=== PATIENT | male | born 1980 | race African-American/Black ===

== ENCOUNTER 2018-02-02 21:25 | Emergency (ER) | payer SELFPAY ==
[2018-02-02 21:45] VITALS: BP 159/92
[2018-02-02] MEDS ORDERED: LIDOCAINE 1% INJ-PF (10 MG/ML) 30 ML SDV INJ ONE (22:20)
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
[2018-02-02] MEDS ORDERED: AMOXICILLIN TR/POT CLAVULANATE 500-125 MG TAB PO ONE (23:12)
[2018-02-02] MEDS ORDERED: AMOXICILLIN TRIHYDRATE 500 MG CAPSULE PO ONE (23:12)
--- NOTE | 2018-02-02 23:22 | RADIOLOGY REPORT (SQ) ---
EXAM DESCRIPTION: XR HAND 3 OR MORE VIEWS COMPLETED DATE/TME: 02/02/2018 22:19 CLINICAL HISTORY: 38 years Male, animal bite, swelling COMPARISON: None. Findings: Swelling, no radiopaque foreign body. Bones, joints, and soft tissues of the XR LEFT HAND 3 VIEWS appear otherwise intact. IMPRESSION: Swelling.
== END 2018-02-02 23:39 | disposition home or self-care (01) ==
LOC: ER 21:25
PROC: 0HQGXZZ Repair Left Hand Skin, External Approach (ICD-10-PCS; principal; 2018-02-02)
DX: S61.452A Open bite of left hand, initial encounter (principal); W54.0XXA Bitten by dog, initial encounter
CPT/HCPCS: 99283; 73130; 12002; J3490

== ENCOUNTER 2019-06-30 23:34 | Emergency (ER) | payer SELFPAY ==
[2019-07-01] MEDS: ALBUTEROL SULFATE 0.083% NEB 2.5 MG/3 ML AMPUL NEB SCH ×2 (00:16)
--- NOTE | 2019-07-01 01:15 | EKG REPORT ---
SEVERITY:- ABNORMAL ECG - SINUS RHYTHM NONSPECIFIC INTRAVENTRICULAR CONDUCTION DELAY : Confirmed by: Leanne Lynne MD 01-Jul-2019 01:14:26
--- NOTE | 2019-07-01 01:24 | ER Document Report ---
ED Respiratory Problem - General Chief Complaint: Breathing Difficulty Stated Complaint: TROUBLE BREATHING Time Seen by Provider: 07/01/19 01:19 Primary Care Provider: KASEY RAMÍREZ DO [Primary Care Provider] - Follow up as needed Notes: 39-year-old man presents to the emergency department with a history of asthma. He states he awoke this evening with difficulty breathing and wheezing throughout. He is out of his nebulizer medications and rescue inhaler came to the emergency department and respiratory distress. Patient was given nebulizer treatment and has significant improvement. He denies fever, productive cough, or chest pain. TRAVEL OUTSIDE OF THE [place] IN LAST 30 DAYS: No - Related Data Allergies/Adverse Reactions: No Known Allergies Allergy (Verified 08/07/13 19:35) Home Medications: primatine Past Medical History - Social History Smoking Status: Former Smoker Family History: DM Patient has suicidal ideation: No Patient has homicidal ideation: No Pulmonary Medical History: Reports: Hx Asthma, Hx Pneumonia Renal/ Medical History: Denies: Hx Peritoneal Dialysis Past Surgical History: Reports: Hx Oral Surgery - wisdom teeth - Immunizations Immunizations up to date: Yes Hx Diphtheria, Pertussis, Tetanus Vaccination: Yes - unknown Review of Systems - Review of Systems Notes: REVIEW OF SYSTEMS GENERAL: Negative for any nausea, vomiting, fevers, chills, or weight loss. NEUROLOGIC: Negative for any blurry vision, blind spots, double vision, facial asymmetry, dysphagia, dysarthria, hemiparesis, hemisensory deficits, vertigo, ataxia. HEENT: Negative for any head trauma, neck trauma, neck stiffness, photophobia, phonophobia, sinusitis, rhinitis. CARDIAC: Negative for any chest pain, dyspnea on exertion, paroxysmal nocturnal dyspnea, peripheral edema. PULMONARY: + shortness of breath, +wheezing GASTROINTESTINAL: Negative for any abdominal pain, nausea, vomiting, bright red blood per rectum, melena. GENITOURINARY: Negative for any dysuria, hematuria, incontinence. INTEGUMENTARY: Negative for any rashes, cuts, insect bites. RHEUMATOLOGIC: Negative for any joint pains, photosensitive rashes, history of vasculitis or kidney problems. HEMATOLOGIC: Negative for any abnormal bruising, frequent infections or bleeding. Physical Exam - Vital signs Vitals: Temp Pulse Resp BP Pulse Ox 98.1 F 99 23 H 174/111 H 97 06/30/19 23:41 06/30/19 23:41 06/30/19 23:41 06/30/19 23:41 06/30/19 23:41 - Notes Notes: Reviewed vital signs and nursing note as charted by RN. CONSTITUTIONAL: Well-nourished well-developed 39-year-old man in no acute distress HEENT: Normocephalic; atraumatic; No swelling, PERRL; Conjunctivae clear, no drainage; EOMI, External ears without lesions; External auditory canal is patent; TMs without erythema, landmarks clear and well visualized; no rhinorrhea; Pharynx without erythema or lesions, no tonsillar hypertrophy, airway patent, mucous membranes pink and moist NECK: Supple, no JVD or bruits CARD: Regular rate and rhythm; no murmurs, no rubs, no gallops, no chest wall tenderness RESP: Bilateral diffuse wheezes, no rales or rhonchi, + use of accessory muscles of respiration, mild respiratory distress ABD/GI: Normal bowel sounds; non-distended; soft, non-tender, no rebound, no guarding, no palpable organomegaly EXT: No edema clubbing or cyanosis SKIN: Warm and dry NEURO: Alert and oriented x3 with no focal motor or sensory or cerebellar abnormalities. Course - Re-evaluation Re-evalutation: 07/01/19 01:25 Patient was given nebulizer procedure treatment with significant improvement of symptoms. He is given an oral dose of prednisone in the emergency department and prescriptions for albuterol Nebules solution and rescue inhaler are given at time of discharge. I have encouraged patient to follow-up with his primary care doctor and he is in agreement with this plan. - Vital Signs Vital signs: Temp Pulse Resp BP Pulse Ox 98.1 F 99 23 H 174/111 H 97 06/30/19 23:41 06/30/19 23:41 06/30/19 23:41 06/30/19 23:41 06/30/19 23:41 - EKG Interpretation by Me EKG shows normal: Sinus rhythm Rate: Normal - Rate 93 [place]/QRS: IVCD Discharge - Discharge Clinical Impression: Asthma with exacerbation Qualifiers: Asthma severity: mild Asthma persistence: persistent Qualified Code(s): J45.31 - Mild persistent asthma with (acute) exacerbation Condition: Good Disposition: HOME, SELF-CARE Instructions: Asthma ([facility]) Referrals: KASEY RAMÍREZ DO [Primary Care Provider] - Follow up as needed
[2019-07-01] MEDS ORDERED: PREDNISONE 20 MG TABLET PO ONE (01:31)
[2019-07-01 01:48] VITALS: BP 112/71
== END 2019-07-01 01:52 | disposition home or self-care (01) ==
LOC: ER 23:34
DX: J45.31 Mild persistent asthma with (acute) exacerbation (principal); Z87.891 Personal history of nicotine dependence
CPT/HCPCS: 93005; 93010; J7512